=== PATIENT | male | born 1940 | race African-American/Black ===

== ENCOUNTER 2019-07-16 12:42 | Inpatient (IN) ==
[2019-07-16] MEDS ORDERED: SODIUM CHLORIDE 0.9% 500 ML IV STA (13:03)
[2019-07-16] MEDS ORDERED: hydrALAZINE 20 MG/1 ML VIAL IV STA (13:03)
[2019-07-16] MEDS ORDERED: ONDANSETRON 4 MG/2 ML VIAL IV STA ×2 (13:03→14:28)
[2019-07-16 13:45] LABS: Basophils % 0.1 % (0.0-0.8); Hematocrit 39.3 VOL% (42.0-52.0); Hemoglobin 12.9 GM/DL (14.0-18.0); Immature Granulocytes % 0.4 %; Immature Granulocytes Absolute 0.04 #; Lymphocytes # 1.1 10*3/uL (1.4-4.0); Lymphocytes % 11.3 % (21.2-54.2); Mean Corpuscular HGB Conc 32.8 GM/DL (32-36); Mean Corpuscular Volume 83.4 FL (87-102); Mean Platelet Volume 11.1 FL (9.6-12.0); Monocytes % 5.2 % (1.7-12.7); Platelet Count 196 T/CUMM (130-400); Red Blood Count 4.71 MC/CUMM (3.8-5.5); Red Cell Distribution Width 14.3 % (9.3-17.3); White Blood Count 10.1 T/CUMM (4-12)
[2019-07-16 14:04] LABS: PT Patient Result 10.6 SECS (9.8-11.9)
[2019-07-16 14:15] LABS: Alanine Aminotransferase 24 U/L (16-61); Albumin 3.6 G/DL (3.4-5.0); Alkaline Phosphatase 54 U/L (45-117); Aspartate Amino Transferase 38 U/L (0-37); Blood Urea Nitrogen 24 MG/DL (7-18); Calcium 9.1 MG/DL (8.5-10.1); Estimated Glom Filtration Rate 40 ML/MIN; Ferritin 114.5 ng/ml (26-388); Glucose 158 MG/DL (74-106); Osmolality,Calculated 276.1 MOS/KG (273-304); Total Protein 7.8 G/DL (6.4-8.3); Troponin I < 0.015 NG/ML (0.00-0.045)
[2019-07-16] MEDS ORDERED: METOCLOPRAMIDE 10 MG/2 ML VIAL IV STA (14:28)
[2019-07-16] MEDS ORDERED: guaiFENesin/DM ER 600-30 MG TABLET PO PRN (15:04)
[2019-07-16] MEDS ORDERED: GLUCAGON 1 MG VIAL IM PRN (15:04)
[2019-07-16] MEDS ORDERED: DEXTROSE 10% 250 ML BAG IV PRN (15:04)
[2019-07-16] MEDS ORDERED: MORPHINE 4 MG/1 ML VIAL IV PRN (15:04)
[2019-07-16] MEDS ORDERED: hydrALAZINE 20 MG/1 ML VIAL IV PRN (15:04)
[2019-07-16] MEDS ORDERED: DOCUSATE SODIUM 100 MG CAPSULE PO PRN (15:04)
[2019-07-16] MEDS ORDERED: ONDANSETRON 4 MG/2 ML VIAL IV PRN (15:04)
[2019-07-16] MEDS ORDERED: LACTULOSE 20 GM/30 ML UDCUP PO PRN (15:04)
[2019-07-16] MEDS ORDERED: ACETAMINOPHEN 325 MG TABLET PO PRN (15:04)
[2019-07-16] MEDS ORDERED: SODIUM CHLORIDE 0.9% 1,000 ML IV SCH (15:30)
[2019-07-16 15:58] LABS: Apearance,Urine CLEAR (Clear); Bilirubin,Urine Negative (Negative); Blood, Urine Small mg/dL (Negative); Glucose,Urine (UA) Negative (Negative); Hyaline Casts,Urine 1 /LPF (0-3); Ketones,Urine Negative (Negative); Mucus,Urine Occasional /LPF (Occasional); Nitrite,Urine Negative (Negative); Protein,Urine 100 MG/DL; RBC,Urine 5 /HPF (0-4); Urine Color Yellow (Yellow); Urine Specific Gravity 1.014 (1.001-1.035); Urine Urobilinogen < 2.0 EU/DL (0.2-1.0); WBC,Urine 1 /HPF (0-6)
[2019-07-16 16:13] LABS: Barbiturates Screen,Urine Negative (Negative); Benzodiazepines Screen,Urine Negative (Negative); Cannabinoid Screen,Urine Negative (Negative); Opiate Screen,Urine Negative (Negative); Phencyclidine Screen,Urine Negative (Negative)
[2019-07-16] MEDS: INSULIN LISPRO 100 UNIT/ML SUBCUT SCH ×2 (16:42→21:55)
[2019-07-16] MEDS: ASPIRIN 325 MG TABLET PO SCH (16:55)
[2019-07-16] MEDS: CLOPIDOGREL 75 MG TABLET PO SCH (16:56)
[2019-07-16] MEDS: ATORVASTATIN 80 MG TABLET PO SCH (21:52)
[2019-07-17] MEDS: LABETALOL 20 MG/4 ML SYRINGE IV PRN ×2 (00:10→21:41)
[2019-07-17 06:48] LABS: Basophils % 0.2 % (0.0-0.8); Eosinophils % 0.2 % (0.00-10.9); Hematocrit 38.9 VOL% (42.0-52.0); Hemoglobin 12.9 GM/DL (14.0-18.0); Immature Granulocytes % 0.4 %; Immature Granulocytes Absolute 0.05 #; Lymphocytes % 15.7 % (21.2-54.2); Mean Corpuscular HGB Conc 33.2 GM/DL (32-36); Mean Corpuscular Volume 82.6 FL (87-102); Mean Platelet Volume 11.2 FL (9.6-12.0); Monocytes % 7.1 % (1.7-12.7); Neutrophils % 76.4 % (38.7-73.9); Platelet Count 215 T/CUMM (130-400); Red Blood Count 4.71 MC/CUMM (3.8-5.5); Red Cell Distribution Width 14.4 % (9.3-17.3); White Blood Count 12.8 T/CUMM (4-12)
[2019-07-17 07:19] LABS: Albumin 3.3 G/DL (3.4-5.0); Bilirubin,Total 1.5 MG/DL (0.2-1.0); Calcium 9.3 MG/DL (8.5-10.1); Osmolality,Calculated 269.5 MOS/KG (273-304); Risk Ratio 5.51; Total Protein 7.5 G/DL (6.4-8.3); VLDL CHOLESTEROL 19.2 MG/DL
[2019-07-17] MEDS: INSULIN LISPRO 100 UNIT/ML SUBCUT SCH ×4 (08:06→22:06)
[2019-07-17] MEDS ORDERED: TUBERCULIN SKIN TEST 0.1 ML SYRINGE INTRADERM ONE (08:45)
[2019-07-17] MEDS: PANTOPRAZOLE 40 MG TABLET PO SCH (09:23)
[2019-07-17] MEDS: ASPIRIN 325 MG TABLET PO SCH (09:23)
[2019-07-17] MEDS: CLOPIDOGREL 75 MG TABLET PO SCH (09:23)
[2019-07-17] MEDS ORDERED: PROMETHAZINE 25 MG SUPP RECTAL PRN (12:14)
[2019-07-17] MEDS ORDERED: SCOPOLAMINE 1.5 MG PATCH TRANSDERM ONE (12:14)
[2019-07-17] MEDS ORDERED: PROMETHAZINE 25 MG SUPP RECTAL ONE (12:15)
[2019-07-17] MEDS: ATORVASTATIN 80 MG TABLET PO SCH (21:41)
[2019-07-18 06:43] LABS: Basophils % 0.3 % (0.0-0.8); Eosinophils # 0.1 10*3/uL (0.0-0.87); Eosinophils % 1.1 % (0.00-10.9); Hematocrit 40.5 VOL% (42.0-52.0); Hemoglobin 12.9 GM/DL (14.0-18.0); Immature Granulocytes % 0.5 %; Immature Granulocytes Absolute 0.05 #; Lymphocytes # 1.9 10*3/uL (1.4-4.0); Mean Corpuscular HGB Conc 31.9 GM/DL (32-36); Mean Corpuscular Volume 85.1 FL (87-102); Monocytes % 9.1 % (1.7-12.7); Platelet Count 220 T/CUMM (130-400); Red Blood Count 4.76 MC/CUMM (3.8-5.5); Red Cell Distribution Width 14.3 % (9.3-17.3); White Blood Count 9.6 T/CUMM (4-12)
[2019-07-18 07:04] LABS: Albumin 3.2 G/DL (3.4-5.0); Bilirubin,Total 1.4 MG/DL (0.2-1.0); Calcium 9.3 MG/DL (8.5-10.1); Total Protein 7.3 G/DL (6.4-8.3)
[2019-07-18] MEDS: INSULIN LISPRO 100 UNIT/ML SUBCUT SCH ×2 (08:16→11:49)
[2019-07-18] MEDS: ASPIRIN 325 MG TABLET PO SCH (09:06)
[2019-07-18] MEDS: CLOPIDOGREL 75 MG TABLET PO SCH (09:06)
[2019-07-18] MEDS: PANTOPRAZOLE 40 MG TABLET PO SCH (09:06)
[2019-07-18 11:50] VITALS: BP 158/75
[2019-07-20] MEDS ORDERED: SCOPOLAMINE 1.5 MG PATCH TRANSDERM SCH (09:00)
== END 2019-07-18 13:15 | DRG 66 ==
LOC: N.ED 12:42 → N.EDINP 15:04 → SUATTDRO 15:04 → N.EDINP 15:59 → N.TELEN 16:16
PROVIDERS: ADMIT Internal Medicine Critical Care Medicine; ATTEND Internal Medicine